=== PATIENT | male | born 1955 | race Caucasian/White ===

== ENCOUNTER 2022-04-27 10:07 | Emergency (ER) | payer MEDICARE, BC ==
[~2022-04-27] VITALS: Ht 167.6 cm; Wt 78.0 kg
--- NOTE | 2022-04-27 10:10 | NUR ---
Pt came into ER in a w/c accompanied by a coworker. Pt states he has hx of back pain but it is worse today. He took Percocet around 5am this morning but it did not resolve the pain. Denies any recent injury or trauma. Pt able to get out of w/c and get into [facility] in room 4A.
[2022-04-27] MEDS ORDERED: LIDOCAINE 5% PATCH TD ONE ×2 (10:40→10:45)
[2022-04-27] MEDS ORDERED: CYCLOBENZAPRINE HCL 10 MG TABLET ONE (10:40)
[2022-04-27] MEDS ORDERED: DIAZEPAM 2 MG TABLET ONE (10:41)
[2022-04-27] MEDS ORDERED: CYCLOBENZAPRINE HCL 10 MG TABLET PO ONE (10:45)
[2022-04-27] MEDS ORDERED: DIAZEPAM 2 MG TABLET PO ONE (10:45)
[2022-04-27] MEDS ORDERED: DIAZ2TAB PO (11:27)
--- NOTE | 2022-04-27 11:51 | NUR ---
Gave pt RX and d/c instructions, pt verbalized understanding.
[2022-04-27] MEDS ORDERED: MORPHINE SULFATE 4 MG/1 ML DISP.SYRIN IV ONE (12:00)
[2022-04-27] MEDS ORDERED: METHOCARBAMOL 500 MG TABLET PO ONE (12:00)
[2022-04-27] MEDS ORDERED: MORPHINE SULFATE 4 MG/1 ML DISP.SYRIN ONE (12:13)
[2022-04-27] MEDS ORDERED: METHOCARBAMOL 500 MG TABLET ONE (12:13)
[2022-04-27] MEDS ORDERED: ONDANSETRON 4 MG/2 ML VIAL IV ONE (12:15)
[2022-04-27] MEDS ORDERED: IV NORMAL SALINE 500 ML BAG IV ONE (12:15)
[2022-04-27] MEDS ORDERED: ONDANSETRON 4 MG/2 ML VIAL ONE (13:03)
== END 2022-04-27 15:14 | disposition home or self-care (01) ==
LOC: ER 10:07
DX: M54.50 Low back pain, unspecified (principal); M62.830 Muscle spasm of back; R26.2 Difficulty in walking, not elsewhere classified; G89.29 Other chronic pain; E11.9 Type 2 diabetes mellitus without complications; Z80.42 Family history of malignant neoplasm of prostate; I10 Essential (primary) hypertension; M47.896 Other spondylosis, lumbar region; M48.061 Spinal stenosis, lumbar region without neurogenic claudication
CPT/HCPCS: 99284; 96374; 96375; J2405; J2270; J7040; A4663